=== PATIENT | male | born 1960 ===

== ENCOUNTER 2016-08-28 21:10 | Inpatient (IN) | payer MEDICARE ==
[~2016-08-28] VITALS: Ht 172.7 cm; Wt 77.0 kg
[2016-08-29] MEDS ORDERED: HALO20TA PO (03:49)
[2016-08-29] MEDS ORDERED: DEP500ER PO (03:50)
[2016-08-29] MEDS ORDERED: SERT20OR6 PO (03:52)
[2016-08-29] MEDS ORDERED: PROP10TA8 PO (03:53)
[2016-08-29] MEDS ORDERED: BENZ0.5T3 PO (03:54)
[2016-08-29] MEDS ORDERED: Benzocaine-Menthol Lozenge 2/Pkg PO PRN (04:40)
[2016-08-29] MEDS ORDERED: Magnesium Hydroxide 10 mL Oral Concentration PO PRN (04:40)
[2016-08-29] MEDS ORDERED: Alum-Mag Hydrox-Simeth 30 mL Suspension PO PRN (04:40)
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
--- NOTE | 2016-08-29 06:55 | NUR ---
Pt arrived to unit at 0045. Signed all paperwork and pt off to room to sleep. slept 0145 til morning. Pt in continuous moment while awake. Oriented to unit. Observed Q15 as ordered.
[2016-08-29 08:00] VITALS: BP 121/75; PULSE 76; RESP 16
[2016-08-29] MEDS: Divalproex (QD) 500 mg ER24 Tablet PO SCH ×2 (08:07→20:19)
--- NOTE | 2016-08-29 16:50 | NUR ---
[employer] Paralegal./c.m. S./O.: came in to pt.'s room. He was sleeping. He didn't answer on clinical writer's greeting and couldn't wake up. He wasn't available for a conversation. A.: pt. is isolative, sleeping a lot. P.: monitor behavior, engage pt. in the unit activities, work on Treatment plan and goals; follow care plan.
--- NOTE | 2016-08-29 17:17 | NUR ---
Observations from [id number] Pt isolated for most of the day only coming out for meals. Pt ate 100% of meals and then went back to his room. Pt didn't attend community meeting and did not participate in groups today. Pt has been monitored every 15 minutes as directed.
--- NOTE | 2016-08-29 17:44 | NUR ---
Nursing Notes [id number] S: I am here to get my medications changed. I am not comfortable around people, I have always stayed to myself. O: Patient isolating in room most of day, out in day room mainly for meals, then back to room. Not participating in groups. A: Patient quiet, isolative, cooperative. P: Monitor for safety and response to treatment. Follow plan of care.
[2016-08-29] MEDS ORDERED: risperiDONE 2 mg Tablet PO SCH (21:00)
--- NOTE | 2016-08-30 03:30 | NUR ---
Observations 1900 to 0700 Pt was in his room when my shift started and was there for the entire night. Pt first appeared asleep at 20:30 and was observed every 15 minutes through the night as directed.
--- NOTE | 2016-08-30 05:24 | NUR ---
Nursing Noc Pt remained in room this shift and noted to be asleep at 2030. Pt started and Risperdal yesterday. Continuing to monitor mood, behavior, emotional state, and sleep time. Maintaining safety with Q15 minute visual checks, ALTAGRACIA
[2016-08-30] MEDS: Divalproex (QD) 500 mg ER24 Tablet PO SCH ×2 (07:58→20:25)
[2016-08-30 08:05] VITALS: BP 106/67; PULSE 81; RESP 16
--- NOTE | 2016-08-30 09:23 | NUR ---
Human Resources Associate./ c.m. S.:"I'm not bad..." O.; met with pt. and MD together in pt.'s room. He was in bed resting after breakfast. He slept well last night. He denied SI/HI, denied AH/VH today, denied paranoid/delusional thoughts. He denied depression or anxiety. He continued feeling "very restless". He had a good visit with his daughter yesterday. A.: pt. is cooperative, isolative, quiet. He has a flat affect and looks calm. P.: monitor behavior, follow care plan.
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
--- NOTE | 2016-08-30 12:18 | NUR ---
Nursing Day Shift- S- "I'm always a little unsteady. It's my hips." O- Pt. had slept well per report. He awoke for breakfast and eat well. He appears flat, with minimal interactions with staff and peers. After lunch, he was noted to divya when getting up from his chair. Pt. denied any medication concerns or side effects and stated the above. He reported chronic hip pain issues. He denied depression, anxiety, auditory or visual hallucinations. A- Pt. appears improved since admit. P- Cont. BHTP.
--- NOTE | 2016-08-30 17:31 | NUR ---
[facility] Day Shift Pt maintained behavioral control throughout the shift. Pt affect appears flat. Pt spends the majority of the shift resting in his room, but is active on the unit to attend meals and briefly watch television in the AM. Pt is appropriate with staff and peers when active on the unit, but is not social. Pt did not attend any group activities throughout the shift. Pt attended all meals and ate approx 100% of all meals.
[2016-08-30] MEDS: risperiDONE 2 mg Tablet PO SCH (20:24)
--- NOTE | 2016-08-30 20:47 | NUR ---
NURSING NOTE [id number] Mood: "good, I think my new medication is working good, good" Affect: distracted, restless Behavior: pacing in his room for much of the shift, arms rigid, came out to eat 100% of his dinner then immediately returned to his room, med compliant Thought processes: delusional, denies AH/VH but he is clearly responding to voices. He came out of his room to inform this script writer that he had just spoken to his friend "telepathically" and that his friend told him that he has "Express Susan" which the pt. states his telepathic friend told him is a condition that "makes me move like this" (referring to his pacing).
--- NOTE | 2016-08-31 04:32 | NUR ---
Nursing Note Director Of Primary Care 11pm to 7am Pt in bed at start of shift. Slept soundly throughout the night. No issues reported or observed. Monitored q 15 minutes for safety, location and accountability.
[2016-08-31] MEDS: Divalproex (QD) 500 mg ER24 Tablet PO SCH ×2 (08:35→20:25)
[2016-08-31 10:35] VITALS: BP 111/86; PULSE 87; RESP 17
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
--- NOTE | 2016-08-31 14:28 | NUR ---
Nursing Note [id number] Behavior S/O: Pt ate 100% for breakfast & lunch. VS stable. Pt reported that he didn't sleep last night even though he was he appeared to be sleeping for over 8 hours. Pt on the phone today with his daughter stating, "I going to go home today." He also asked a MHA, "Can you help me find the group that I'm travelling with?" Pt out in milieu & responds to peers when they initiate conversation. Pt asking for a phone number, but asked for the wrong person multiple times. Conversation tracking understandable. Pleasant & cooperative. A: Pt appears cognitively confused. P: Provide supportive environment. Monitor medications & effects.
--- NOTE | 2016-08-31 17:19 | NUR ---
Obs Dayshift Pt is polite, calm, restless, confused, Oriented x2 - not to situation or time. Pt asked for us to get information or numbers for the group that he was traveling w/ prior to coming here, asked for assistance to get ahold of a family member but was confused about the last name so staff had him call the emergency contact daughter instead. pt was very confused on whom he was trying to contact and how. Told daughter that he was released and ready to be picked up. Pt is wandering around aimless, staring out windows. Participates in some groups but minimally. Engages w/ some peers, but mostly after they approach him. Good ADL's, Good meals
--- NOTE | 2016-08-31 18:57 | NUR ---
NURSING NOTE [id number] Mood: "good, I'll be going home today or tomorrow so I'm good" Affect: internally preoccupied, confused Behavior: much more visible today than days prior; he has been out of his room many times and spent time in the dining room this shift, alternately sitting alone in a chair or pacing. Thought processes: pt. is delusional; he reported that he not only met with his doctor here today but that also his primary care provider on the outside came to visit him today: "she's a woman-- my doctor-- but I can't remember her name and that she told me I can leave whenever I want, so probably today or tomorrow." He appears to be responding to voices though he denies AH/VH. Denies SI/HI/anxiety/depression. Stated: "my medications really feel like they're working."
[2016-08-31] MEDS: risperiDONE 2 mg Tablet PO SCH (20:29)
--- NOTE | 2016-08-31 23:07 | NUR ---
activity patient stayed mostly in his room this evening. agreeable to evening medications appropriate with staff. care ongoing.
--- NOTE | 2016-08-31 23:08 | NUR ---
activity patient attended group this evening. stayed in common area most of the evening. appropriately interacting with fellow patients. responsive to conversation. compliant with medication. care ongoing.
--- NOTE | 2016-08-31 23:09 | NUR ---
activity patient very concerned that she is "leaving soon." coat on, carrying a bag. stated "when is my ride coming?" explained to patient she is not leaving tonight. patient agreeable. verbalized understanding. compliant with medications. now resting in her room.
--- NOTE | 2016-09-01 02:48 | NUR ---
Observations 1900 to 0700 Pt was in his room when my shift started and was there for most of the night. pt walked the posada very briefly before returning to his room for the night. Pt first appeared asleep at 21:15 and was observed every 15 minutes through the night as directed.
[2016-09-01] MEDS: Divalproex (QD) 500 mg ER24 Tablet PO SCH (09:12)
[2016-09-01 11:00] VITALS: BP 84/57; PULSE 72
--- NOTE | 2016-09-01 11:56 | PROG NOTE ---
[address] [address] PROGRESS NOTE PATIENT: VIJAY KENNEDY : 1960 MR#: [id number] ADMIT: 08/29/2016 JOB ID: [id number] DATE: 09/01/2016 CHIEF COMPLAINT: "I hope it doesn't take long." This is per patient report. HISTORY OF PRESENT ILLNESS: As stated above, the patient did express significant concern and desire to discharge. He evidently was approached the nursing staff last evening requesting discharge despite interventions provided by myself and along with the daughter yesterday. He openly identified that he is tired of being in the hospital, feels trapped, and feels that he can successfully make it at home. I did discuss with the treatment team the daughter's concerns about the patient's significant inappropriate behaviors in her home, including her concern of some of his sexualized comments. The patient reportedly has a long-term history of TBI with limited impulse control and noted delusional reference. This morning he indicated that he does feel that his thoughts are going much better. He indicated that he had not experienced hallucinations for approximately a day and a half with a dose titration of Risperdal to 4 mg at bedtime. He was able to track and follow a conversation, and I did review his other medication interventions, including current doses of Zoloft 50 mg daily, propranolol 20 mg b.i.d., and also Depakote 500 mg b.i.d. I have discussed further titration of his Depakote with election to discontinue Zoloft based on the absence of depression at this time and possibility of improvement with patient's impulsively. OBJECTIVE: On mental status exam, he was cooperative, polite. He maintained good eye contact throughout. His speech was hesitant at times, but he did improve as the conversation progressed. His mood is alexithymic. His affect is incongruent at points. His thought content: He denied any evidence of current suicidal, homicidal ideation. There is a mild degree of paranoia in reference to the plans of discharge. He denied any current hallucinations, indicating that he has not heard voices for approximately the past day and a half. He does have some overt sexualized comments but was redirectable. He was alert, oriented to time and place. Attention and concentration intact. Insight and judgment are poor. PHYSICAL EXAM: Vital signs are current. Temperature is 36.3, pulse 72, respirations unlisted, BP 84/57. MEDICATION REVIEW: Includes: 1. Depakote 500 mg b.i.d. 2. Risperdal 4 mg q.h.s. 3. Inderal 20 mg b.i.d. 4. Cogentin 1 mg b.i.d. 5. Zoloft 50 mg daily. ASSESSMENT: AXIS I: 1. Schizophrenia, paranoid type by history. 2. 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 3. Alcohol use disorder, in remission. 4. Marijuana use disorder, in remission. AXIS II: Deferred. AXIS III: 1. Status post traumatic brain injury. 2. History of seizure disorder. AXIS IV: Stressors are noted for recent difficulties with impaired coping, transition of life, limited social support, and access of care. AXIS V: Global Assessment of Functioning of current 30. PLAN: 1. Recommendations for possible applications for extension and modification of LR90. Discussed with the court appointed attorneys. 2. Recommendations for discontinuation of Zoloft with titration of Depakote to 500 mg q.a.m., 1000 mg q.h.s. Point of reference is to improve the patient's limited impulse control disorder. 3. Followup discharge planning to include extension of LR90 with access of community-based mental health system.
--- NOTE | 2016-09-01 14:06 | NUR ---
Nursing Note [id number] Behavior S/O: Pt has a good appetite. B/P low this morning at 0730-84/57. B/P retaken at 1000-94/62. Fluids encouraged. Pt resting in room most of the day. Pt states, "I'm fine." Conversation tracking clear & organized. No suicidal statements. Pt d/n attend groups today. A: Pt needs structured environment to maintain functioning. P: Provide supportive environment. Monitor medications & effects.
--- NOTE | 2016-09-01 17:22 | NUR ---
Observations [id number] Pt was asleep upon start of shift. He attended all meals, eating 100%. Pt spent much of his time in his room, sleeping, or pacing the halls. He appears to have difficulty with remaining still or sitting down for long periods of time. Pt was friendly with peers and staff, only mentioning to this sba underwriter once that he was "ready to get out of here" but did not bring up the topic again. Pt is not overly social and did not attend groups. He did complete laundry. Pt was observed every 15 minutes of shift as directed.
[2016-09-01] MEDS: risperiDONE 2 mg Tablet PO SCH (20:38)
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
--- NOTE | 2016-09-02 03:28 | NUR ---
Observations 1900 to 0700 Pt was in his room when my shift started and was there for most of the night. pt walked the posada very briefly before returning to his room for the night. Pt first appeared asleep at 20:45 and was observed every 15 minutes through the night as directed.
--- NOTE | 2016-09-02 06:13 | NUR ---
Sleep 11p-7a Adequate sleep through the night with no noted distress or awakening per protocol checks. He has remained asleep since 2044 with over 9.5 hours.
[2016-09-02] MEDS ORDERED: Divalproex (QD) 500 mg ER24 Tablet PO SCH (08:30)
[2016-09-02 09:36] LABS: EOSINOPHILS % (AUTO) 4.8 % (0-5); MONOCYTES % (AUTO) 11.3 % (4-12); Mean Corpuscular Hemoglobin 31.3 pg (27.0-35.0); Mean Corpuscular Volume 90.6 fL (81-100); NEUTROPHILS % (AUTO) 58.8 % (40-74); Platelet Count 245 bil/L (150-400)
[2016-09-02 10:12] LABS: Valproic Acid < 3 ug/mL (50-125)
[2016-09-02 12:16] VITALS: BP 108/71; PULSE 82; RESP 16
--- NOTE | 2016-09-02 12:46 | PROG NOTE ---
[address] [address] PROGRESS NOTE PATIENT: VIJAY KENNEDY : 1960 MR#: [id number] ADMIT: 08/29/2016 JOB ID: [id number] DATE: 09/02/2016 CHIEF COMPLAINT: "I guess I can stay here a couple more days." This is per patient report. HISTORY OF PRESENT ILLNESS: As stated above, the patient did confirm that he would be willing to continue with his hospitalization. He was given information by myself that we are petitioning the courts for the extension of his LR90 based on the fact that it will run out on September 08. We have received a copy of the initial order that was sent from [place], and unfortunately the patient and the patient's family had great difficulties obtaining services at [facility]. I had spoken at length with the daughter this morning who indicated that she was desperately trying to find the patient services in the region, but unfortunately ended up with a referral for an outpatient psychiatrist who basically felt that the patient was unstable and needed hospitalization. Since his arrival, the patient has transition on medications from Haldol to Risperdal with positive benefit. He reportedly has also elected to discontinue previous doses of Zoloft with no changes. His laboratory data collected this morning included a CBC, chemistry panel, and valproic acid level which was less than 3 which is concerning with suggestion that the patient has been cheeking medications. The patient reportedly is currently dispensed Depakote 500 mg q.a.m. and 1000 mg q.h.s. He reportedly does identified that he has not heard voices over the past two days, indicated that the greatly appreciates the transition from Haldol to Risperdal. He reports that he has had no evidence of concerns of mood instability and no difficulties with further intrusive thought patterns. OBJECTIVE: On mental status exam, he is bright, cooperative, interactive. He continues to have mild degree of acuesthesia with standing and sitting. There is evidence of focal motor tics as well throughout the course of conversation. His speech is of normal tone, frequency, and volume. His mood is neutral. His affect was congruent. His thought process showed no evidence of racing thoughts, flight of ideas, loose or disconnected thinking. Thought content: He denied any evidence of current suicidal, homicidal ideation. There was no evidence of paranoia. He indicated that he has not experienced auditory hallucinations over the past 48 hours. He continues to be mildly delusional with some sexual reference as referred to his naturopathic physician in [place]. He was alert, oriented to time and place. Attention and concentration intact. Insight and judgment are poor. PHYSICAL EXAM: Vital signs of current. Temperature is 36.3, pulse 72, respirations unlisted. BP 84/57. MEDICATION REVIEW: Includes: 1. Depakote 500 mg q.a.m., 1000 mg q.h.s. 2. Cogentin 1 mg b.i.d. 3. Risperdal 4 mg q.h.s. 4. Inderal 20 mg b.i.d. ASSESSMENT: AXIS I: 1. Schizophrenia, paranoid type. 2. Cognitive disorder, not otherwise specified, with identified previous traumatic brain injury. AXIS II: Deferred. AXIS III: History of severe traumatic brain injury. AXIS IV: Stressors are noted for chronic mental health issues, limited access of care. AXIS V: Global Assessment of Functioning of current 35. PLAN: 1. Recommendations for petition to the court process with extension of LR90 to be completed on Wednesday and schedule discharge thereafter. 2. Continuation of all medications as noted with revisions of Depakote to 1500 mg single dose at h.s.
--- NOTE | 2016-09-02 15:48 | NUR ---
Nursing Day Shift- S- "Can you change the movie?" O- Pt. had slept 9.5 hours per report. He was awake and dressed for breakfast. He appeared flat, with minimal interactions, but was verbal to have his needs met. Pt's daughter visited on the unit, and that seemed to cheer him. He denied auditory hallucinations. A- Pt. took medications without hesitation in view of staff. Depakote level low. P- MD aware of Depakote level. Cont. TP.
--- NOTE | 2016-09-02 17:31 | NUR ---
[facility] Day Shift Pt maintained behavioral control throughout the shift. Pt affect appears flat. Pt appears more restless than noted on previous shifts. Pt spends the majority of the shift pacing the dining room and around the Nurse's Station. Pt is appropriate with staff and peers when active on the unit and is appropriately social when engaged. Pt attended community meeting in the AM, but did not attend group activities throughout the shift. Pt attended all meals and ate approx 100% of all meals.
[2016-09-02] MEDS: risperiDONE 2 mg Tablet PO SCH (20:40)
[2016-09-02] MEDS: Divalproex (QD) 500 mg ER24 Tablet PO SCH (20:40)
--- NOTE | 2016-09-02 22:08 | NUR ---
NURSING NOTE [id number] Mood: "doing good" Affect: flat, brightens more in conversation Behavior: some dystonia this shift but less than when he first came in, has been sitting and watching TV for much of the shift but gets up intermittently to pace in a salamatof in the DR before sitting down again. He is med compliant, ate 100% of his dinner. Thought processes: denies AH/VH/SI/HI, delusional; called his daughter and told her he is being transported to [facility] tomorrow to have brain surgery. Also asked if his doctor from the outside would be seeing him today but unable to name the doctor or why they would be here to assess him. Not fixated on discharge this shift as he has been on prior evening shifts w/this financial writer over the past several days.
--- NOTE | 2016-09-03 02:52 | NUR ---
Observations 1900 to 0700 Pt was out and about more than my previous shifts worked. Pt attended wrap up group. Pt walked the posada very briefly before returning to his room. Pt had a hard time sleeping last night. Pt first appeared asleep at 22:15 and was observed every 15 minutes through the night as directed.
--- NOTE | 2016-09-03 05:21 | NUR ---
nursing, nights, 11-7 s- no i don't want anything. i'm going to [facility] today. o- has appeared to sleep after 2215. up to the dinning room at 0010 and socialized with a peer then paced until returning to his room and appearing to sleep after 0400. assessed q 15 minutes. a- inadequate sleep, generally appropriate but rather flat, appears to be responding to internal stimuli at times. makes some odd hand gestures. no apparent distress. p- monitor behavior/emotional state, quality, times and amount of sleep, use and effect of medication. allyn
--- NOTE | 2016-09-03 11:25 | PROG NOTE ---
[address] [address] PROGRESS NOTE PATIENT: VIJAY KENNEDY : 1960 MR#: [id number] ADMIT: 08/29/2016 JOB ID: [id number] DATE: 09/03/2016 CHIEF COMPLAINT: "Thank you, I know I need to get help. It has taken so long." This is per patient report. HISTORY OF PRESENT ILLNESS: As stated above, the patient agreed with myself with applications of an extension of LR 90 to be filed for tomorrow. He indicated that he and his daughter had been trying to desperately get services since July when he moved from [place] to his daughter's home. He reports that he is very glad that he came into the hospital and had his medications adjusted, and states that he has not experienced auditory hallucinations over the past three days. He indicates that his previous difficulties with extreme akathisia have also significantly improved. OBJECTIVE: On mental status exam, he makes good eye contact throughout. He smiles appropriately. His speech is of normal tone, frequency, and volume. His mood was neutral. Affect was congruent. His thought process showed no evidence of random flight of ideas, loose or disconnected thinking. Thought content, he denied any evidence of current suicidal, homicidal ideation. No evidence of paranoia. He referenced that hallucinations have been away for approximately three days. Currently, he denies any delusions. He was alert, oriented to time and place. His attention and concentration intact. Insight and judgment are gaining. PHYSICAL EXAMINATION: Vital signs are current. Temperature is 36.4, pulse 82, respirations 16, BP 106/71. MEDICATION REVIEW: Includes: 1. Depakote 1500 mg ER q.h.s. 2. Cogentin 1 mg t.i.d. 3. Risperdal 4 mg q.h.s. 4. Inderal 20 mg b.i.d. ASSESSMENT: AXIS I 1. Schizophrenia, paranoid type. 2. Cognitive disorder, not otherwise specified, with previous history of traumatic brain injury. AXIS II Deferred. AXIS III 1. History of traumatic brain injury. 2. History of hypertension. AXIS IV Stressors are noted for transition of life, absence of services, chronic mental health issues. AXIS V Global Assessment of Functioning current 40. PLAN: 1. Recommendation is for application of extension of LR 90 based on the patient's continued inability to stabilize in a least restrictive model. 2. Recommendation is for continuation of all medications noted. 3. Plan and intent to discharge tomorrow to the daughter's care with continuation of outpatient access of services through [facility] for both case management and medication management.
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
[2016-09-03 13:31] VITALS: BP 106/72; PULSE 103; RESP 16
[2016-09-03] MEDS: LORazepam 1 mg Tablet PO PRN ×2 (14:59→20:39)
--- NOTE | 2016-09-03 18:13 | NUR ---
[facility] Day Shift Pt maintained behavioral control throughout the shift. Pt affect appears flat. Pt appears more restless than noted on previous shifts. Pt spends the majority of the shift pacing the dining room and around the Nurse's Station. Pt is appropriate with staff and peers when active on the unit and is appropriately social when engaged. Pt attended community meeting in the AM, but did not attend group activities throughout the shift. Pt expresses some delusional thought content in the afternoon, claiming his relatives were attempting to bring a bomb into the hospital. Pt attended all meals and ate approx 100% of all meals.
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
[2016-09-03] MEDS: risperiDONE 2 mg Tablet PO SCH (20:35)
[2016-09-03] MEDS: Divalproex (QD) 500 mg ER24 Tablet PO SCH (20:35)
--- NOTE | 2016-09-04 05:36 | NUR ---
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 Patient appears preoccupied,but states "I am OK" Patient noted to wander into other patients room, but easily redirected. Patient received Zyprexa 10 mg po at 0021, along with HS snack. Patient continues intermittently restless until 0200,then noted to be sleeping on safety checks the remainder of the night.
[2016-09-04 08:50] VITALS: BP 92/64
--- NOTE | 2016-09-04 09:23 | PCM.DIMED ---
Discharge Instructions Date of Service Sep 04, 2016 Dates of Hospitalization Aug 29, 2016 at 00:55 Discharge Diagnosis Discharge Diagnosis Schizophrenia Paranoid type Cognitive DO due to severe trauma Delusional DO NOS Diet No restrictions Activity No restrictions [email or web address] Tate Sep 04, 2016 09:23
[2016-09-04] MEDS ORDERED: BENZ1TAB7 PO (09:26)
[2016-09-04] MEDS ORDERED: DIVA500T14 PO (09:26)
[2016-09-04] MEDS ORDERED: RISP4TAB2 PO (09:26)
[2016-09-04] MEDS ORDERED: PROP20TA5 PO (09:26)
[2016-09-04 11:00] VITALS: BP 107/60; PULSE 107; RESP 16
--- NOTE | 2016-09-04 12:04 | NUR ---
Nursing Discharge- Pt. to be discharged at 1230 today to home. Pt's daughter to provide transportation and housing. Prescriptions to be given to the Pt. as he is unsure of what pharmacy he will be using. Pt. was able to sign all discharge paperwork. He expressed an understanding of the follow up and medication plans. Pt. denied auditory or visual hallucinations. He denied SI or HI. He did show some signs of ongoing confusion and memory issues. LRO to be followed by Jacque Neri as court ordered.
--- NOTE | 2016-09-04 14:06 | DIS ---
[address] [address] DISCHARGE SUMMARY PATIENT: VIJAY KENNEDY : 1960 MR#: [id number] ADMIT: 08/29/2016 JOB ID: [id number] DIS: ADMITTING DIAGNOSES: Include: [place] I. 1. Schizophrenia, chronic paranoid type. 2. 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 3. Alcohol and marijuana use disorder, in remission. [place] II. Deferred. [place] III. 1. Status post closed head injury in 2008. 2. Seizure disorder, unknown type. 3. Status post multiple upper extremity injuries. [place] IV. Stressors are noted for severe cognitive impairment, poor coping skills, limited social support, poor memory. [place] V. Global Assessment of Functioning current 30. DISCHARGE DIAGNOSES: [place] I. 1. Schizophrenia, paranoid type. 2. 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 3. Alcohol marijuana use disorder, in remission [place] II. Deferred. [place] III. 1. Status post closed head injury in 2008. 2. Seizure disorder, unknown type. 3. Status post multiple upper extremity injuries. [place] IV. Stressors are noted for severe cognitive impairment, poor coping skills, limited social support, poor memory. [place] V. Current Global Assessment of Functioning 40. REASON FOR ADMISSION: Patient was a 56-year-old male, who was admitted on a voluntary basis with evidence of schizophrenia and recent decompensation. He reportedly had been recently hospitalized in [facility] at the [facility] mental health treatment program from April through June 2016. Upon discharge, the patient was placed on a LR90 and was scheduled to follow up with services with [facility]. Unfortunately, this was never coordinated sufficiently and the patient decompensated with limited medication interventions. He reportedly admitted with significant evidence of acute psychoses, delusions and paranoia. During hospital course, patient did initiate medications of Risperdal, eventually titrated to 4 mg q.h.s., Depakote 1500 mg ER q.h.s., Cogentin 1 mg t.i.d., and propranolol 20 mg b.i.d. Throughout hospital course, coordination of outpatient services was discussed with the patient, and in meeting with myself and his daughter, elected to apply for extension of LR90. Was consented to with patient's agreement to such order. Throughout hospital course, the patient showed significant improvement with the stability of status. He did have continuation of difficulties with akathisia and other EPS presentation which seemed to be significantly improved with administration of both benztropine and Inderal. Throughout hospital course, patient did have evidence of sexual delusions with open identification that he was looking forward to meeting with a municipal firefighter to go through a penile extension. He was redirectable and often encouraged to contain his sexual ideation. Throughout hospital course, patient demonstrated no evidence of significant difficulties with boundaries or agitation or aggression. His Depakote level was noted at less than 3, 72 hours prior to discharge. Recommendation for followup Depakote level was given, within one week post discharge with noted titration. CONDITION AT TIME OF DISCHARGE: Patient mental status exam: He was bright, cooperative, interactive. He was excited about returning back to his daughter's home. He was agreeable to follow up with comprehensive services under LR90 order. His speech was of normal tone, frequency, and volume. His mood was neutral. His affect was congruent. His thought process shows no evidence of racing thoughts, flight of ideas, loose or disconnected thinking. Thought content: He denied any evidence of current suicidal or homicidal ideation. He denied any evidence of hallucinations for the past four days. Indicated that the voices have essentially gone. He did admit to continuation of some delusions of reference in sexualized manner. He was alert, oriented to time and place. His attention and concentration intact. Memory improved to some degree, but he remained difficult with short-term, immediate recall. His insight and judgment are deemed poor. DISCHARGE PLANS: Include. 1. Continuation of LR90,extension with followup with [facility]. 2. Recommendations for continuation of medications including Risperdal 4 mg q.h.s., one-month supply, no refills. Reason for usage: Antipsychotic. 3. Continuation of Depakote ER 1500 mg ER q.h.s., one-month supply, no refills. Reason for usage: Mood stability. 4. Continuation of propranolol 20 mg b.i.d., one-month supply, no refills. Reason for usage: History of akathisia. 5. Continuation of Cogentin 1 mg t.i.d., one-month supply, no refills. Reason for usage: Anticholinergic, anti-EPS. 6. Recommendations for followup Depakote level to be obtained by his care providers at [facility] in approximately one week for ongoing medication management purposes.
--- NOTE | 2016-09-04 15:05 | NUR ---
Pattern Finisher/Counselor: S: "I'm calling my daughter to pick me up." O: Patient slept 4.25 hours last night as per staff. Patient denies S/I and H/I. Patient also denies auditory and visual hallucinations. He did not rate depression and anxiety. When asked his mood, patient stated, "Fine." Out-patient appointment: [facility], 09/07/16 at 8:45am. A: Patient is cooperative, hopeful. P: Follow care plan, coordinate out-patient providers.
== END 2016-09-04 12:50 | disposition home or self-care (01) | DRG 885 ==
LOC: MHC 08-29 00:55
PROVIDERS: ADMIT Psychiatry & Neurology Psychiatry; ATTEND Psychiatry & Neurology Psychiatry
DX: F20.0 Paranoid schizophrenia (principal); Z91.14 Patient's other noncompliance with medication regimen; Z87.820 Personal history of traumatic brain injury; F17.210 Nicotine dependence, cigarettes, uncomplicated